=== PATIENT | female | born 1970 | race Two or more races ===

== ENCOUNTER 2024-07-07 14:09 | Outpatient (CLI) | payer OTHER ==
[~2024-07-07 14:09] MED LIST: ATENOLOL25 MG PO; DILTIAZEM HCL120 MG
== END 2024-07-07 14:12 | disposition home or self-care (01) ==
LOC: RAD 14:09
PROVIDERS: ATTEND Obstetrics & Gynecology
DX: M54.50 Low back pain, unspecified (principal)